=== PATIENT | male | born 1990 | race Caucasian/White ===

== ENCOUNTER 2019-07-24 16:07 | Emergency (ER) | payer OTHER ==
[~2019-07-24] VITALS: Ht 175.3 cm; Wt 94.8 kg
[2019-07-24 16:21] VITALS: BP 164/106; Ht 175.3 cm; Wt 94.8 kg
== END 2019-07-24 18:20 | disposition home or self-care (01) ==
LOC: ED 16:07
DX: J40 Bronchitis, not specified as acute or chronic (principal); J06.9 Acute upper respiratory infection, unspecified
CPT/HCPCS: 87804

== ENCOUNTER 2020-04-16 19:47 | Emergency (ER) | payer OTHER, SELFPAY ==
[~2020-04-16] VITALS: Ht 175.3 cm; Wt 95.3 kg
[2020-04-16 19:48] VITALS: Ht 175.3 cm; Wt 95.3 kg
[2020-04-16 21:06] VITALS: BP 149/100
== END 2020-04-16 21:06 | disposition home or self-care (01) ==
LOC: ED 19:47
DX: M79.10 Myalgia, unspecified site (principal); R53.83 Other fatigue; R51.9 Headache, unspecified; Z20.828 Contact with and (suspected) exposure to other viral communicable diseases
CPT/HCPCS: U0003